=== PATIENT | female | born 1960 | race Two or more races ===

== ENCOUNTER 2018-12-11 21:44 | Emergency (ER) | payer MEDICARE, MEDICAID ==
[~2018-12-11] VITALS: Ht 152.4 cm; Wt 73.0 kg
[~2018-12-11 21:44] MED LIST: DES150; LORA-250; TRAM50TA3
[2018-12-12] MEDS ORDERED: LORAZEPAM 1MG TABLET PO ONE (01:30)
[2018-12-12] MEDS ORDERED: ACETAMINOPHEN 325MG TABLET PO STA (01:30)
[2018-12-12 01:47] LABS: BASOPHILS % 0.4 % (0.0-2.0); HEMATOCRIT. 36.6 % (36.0-48.0); HEMOGLOBIN. 12.2 g/dL (12.0-16.0); LYMPHOCYTES % 37.1 % (20.0-50.0); MEAN CORPUSCULAR HEMOGLOBIN 28.4 pg (28.0-32.0); MEAN CORPUSCULAR VOLUME 85.1 fL (81.0-99.0); MEAN PLATELET VOLUME 8.5 fl (7.4-10.4); NEUTROPHILS % 54.5 % (40.0-76.0); PLATELET 245 x1000/uL (130-400); RED CELL DISTRIBUTION WIDTH 14.6 % (11.6-14.6)
[2018-12-12 01:53] LABS: CHLORIDE 105 mEq/L (98-107)
[2018-12-12] MEDS ORDERED: SODIUM CHLORIDE 0.9% 1,000 ML IV ONE (03:11)
[2018-12-12 03:33] LABS: CLARITY URINE CLEAR (CLEAR); COLOR URINE YELLOW (YELLOW); KETONES URINE NEGATIVE (NEGATIVE); LEUKOCYTE ESTERASE URINE NEGATIVE (NEGATIVE); NITRITE URINE NEGATIVE (NEGATIVE); OCCULT BLOOD URINE TRACE (NEGATIVE); PROTEIN URINE NEGATIVE (NEGATIVE); SPECIFIC GRAVITY URINE 1.014 (1.005-1.030); UROBILINOGEN URINE 0.2 E.U./dL (0.2-1.0)
[2018-12-12 03:49] LABS: *BARBITURATES SCREEN URINE NEGATIVE (NEGATIVE); *BENZODIAZEPINES SCREEN URINE PRESUMTIVE POSITIVE (NEGATIVE)
[2018-12-12 03:50] LABS: *AMPHETAMINES SCREEN URINE NEGATIVE (NEGATIVE); *COCAINE SCREEN URINE NEGATIVE (NEGATIVE); METHADONE URINE SCREEN NEGATIVE (NEGATIVE); OPIATES URINE SCREEN PRESUMTIVE POSITIVE (NEGATIVE); PHENCYCLIDINE URINE SCREEN NEGATIVE (NEGATIVE)
[2018-12-12 03:51] LABS: CANNABINOID URINE SCREEN NEGATIVE (NEGATIVE)
[2018-12-12] MEDS ORDERED: ACETAMINOPHEN WITH CODEINE 300/30MG TABLET PO ONE (05:45)
[2018-12-12 11:15] VITALS: BP 162/78
[2018-12-12] MEDS ORDERED: ACETAMINOPHEN 325MG TABLET PO ONE (11:30)
== END 2018-12-12 13:11 | disposition home or self-care (01) ==
LOC: ER 21:44
DX: R51 Headache (principal); R07.89 Other chest pain; N39.0 Urinary tract infection, site not specified; R44.1 Visual hallucinations; F31.9 Bipolar disorder, unspecified; M54.30 Sciatica, unspecified side; F41.9 Anxiety disorder, unspecified; H53.8 Other visual disturbances; Z90.710 Acquired absence of both cervix and uterus; Z88.6 Allergy status to analgesic agent
CPT/HCPCS: 36415; 70450; 71045; 80053; 80305; 81003; 83880; 84484; 85025; 93005; 96360; 99284; J7030

== ENCOUNTER 2019-10-31 10:11 | Emergency (ER) | payer MEDICARE, MEDICAID ==
[~2019-10-31] VITALS: Ht 165.1 cm; Wt 80.0 kg
[2019-10-31] MEDS ORDERED: METHYLPREDNISOLONE SOD SUCC 125 MG/2 ML VIAL IV ONE (11:45)
[2019-10-31 12:12] LABS: BASOPHILS % 0.9 % (0.0-2.0); EOSINOPHILS % 2.8 % (0.0-5.0); HEMATOCRIT. 37.7 % (36.0-48.0); HEMOGLOBIN. 12.3 g/dL (12.0-16.0); LYMPHOCYTES % 39.8 % (20.0-50.0); MEAN CORPUSCULAR HEMOGLOBIN 26.7 pg (28.0-32.0); MEAN CORPUSCULAR VOLUME 81.7 fL (81.0-99.0); MEAN PLATELET VOLUME 8.4 fl (7.4-10.4); MONOCYTES % 5.9 % (2.0-8.0); NEUTROPHILS % 50.6 % (40.0-76.0); PLATELET 254 x1000/uL (130-400); RED BLOOD CELL COUNT 4.61 mill/uL (4.2-5.4)
[2019-10-31 12:15] LABS: CHLORIDE 102 mEq/L (98-107)
[2019-10-31 12:19] LABS: CLARITY URINE CLEAR (CLEAR); COLOR URINE YELLOW (YELLOW); KETONES URINE NEGATIVE (NEGATIVE); LEUKOCYTE ESTERASE URINE NEGATIVE (NEGATIVE); NITRITE URINE NEGATIVE (NEGATIVE); OCCULT BLOOD URINE NEGATIVE (NEGATIVE); PH URINE 5.5 (4.5-8.0); PROTEIN URINE NEGATIVE (NEGATIVE); SPECIFIC GRAVITY URINE 1.011 (1.005-1.030); UROBILINOGEN URINE 0.2 E.U./dL (0.2-1.0)
[2019-10-31 12:32] VITALS: BP 160/80
[2019-10-31 12:52] LABS: PROTHROMBIN TIME 10.4 sec (9.6-11.0)
== END 2019-10-31 14:22 | disposition home or self-care (01) ==
LOC: ER 10:11
DX: L29.9 Pruritus, unspecified (principal); F41.9 Anxiety disorder, unspecified; I10 Essential (primary) hypertension; Z88.6 Allergy status to analgesic agent; Z79.899 Other long term (current) drug therapy; Z90.710 Acquired absence of both cervix and uterus
CPT/HCPCS: 36415; 80053; 81003; 85025; 85610; 96374; 99283; J2930

== ENCOUNTER 2021-07-13 22:46 | Emergency (ER) | payer MEDICARE, MEDICAID ==
[~2021-07-13] VITALS: Ht 160 cm; Wt 80.0 kg
[2021-07-14] MEDS ORDERED: MORPHINE SULFATE 4 MG/ML CPJ (NOT FOR IM USE) IV ONE (00:15)
[2021-07-14] MEDS ORDERED: DIPHENHYDRAMINE 50MG/ML VIAL IV ONE (00:15)
[2021-07-14] MEDS ORDERED: METHYLPREDNISOLONE SOD SUCC 125 MG/2 ML VIAL IV ONE (00:15)
[2021-07-14 02:53] VITALS: BP 123/85
== END 2021-07-14 02:54 | disposition home or self-care (01) ==
LOC: ER 22:46
DX: T78.1XXA Other adverse food reactions, not elsewhere classified, initial encounter (principal); R21 Rash and other nonspecific skin eruption; L29.9 Pruritus, unspecified; X58.XXXA Exposure to other specified factors, initial encounter; I10 Essential (primary) hypertension; M54.30 Sciatica, unspecified side
CPT/HCPCS: 96374; 96375; 99284; J1200; J2270; J2930

== ENCOUNTER 2021-11-25 14:09 | Emergency (ER) | payer OTHER, MEDICAID ==
[~2021-11-25] VITALS: Ht 167.6 cm; Wt 90.0 kg
[2021-11-25 14:09] VITALS: BP 162/98
[2021-11-25] MEDS ORDERED: HYDROCODONE/ACETAMINOPHEN 5/325MG TABLET PO ONE (14:30)
[2021-11-25] MEDS ORDERED: TRAM50TA3 MT (15:49)
[2021-11-25] MEDS ORDERED: CYCL10TA21 MT (15:49)
== END 2021-11-25 19:33 | disposition home or self-care (01) ==
LOC: ER 14:09
DX: M54.50 Low back pain, unspecified (principal); M17.12 Unilateral primary osteoarthritis, left knee; Z88.6 Allergy status to analgesic agent; Z86.59 Personal history of other mental and behavioral disorders
CPT/HCPCS: 72100; 73560; 99284

== ENCOUNTER 2022-03-05 17:28 | Emergency (ER) | payer BC, MEDICAID ==
[~2022-03-05] VITALS: Ht 149.9 cm; Wt 95.3 kg
[~2022-03-05 17:28] MED LIST changes: +CYCL10TA21 MT; +TRAM50TA3 MT
[2022-03-05] MEDS ORDERED: P20 MT (18:40)
[2022-03-05] MEDS ORDERED: ACETAMINOPHEN 500MG TABLET PO ONE (18:45)
[2022-03-05] MEDS ORDERED: PREDNISONE 20MG TABLET PO ONE (18:45)
[2022-03-05] MEDS ORDERED: DIPHENHYDRAMINE 25MG CAPSULE PO ONE (18:45)
[2022-03-05 19:07] VITALS: BP 127/86
== END 2022-03-05 19:12 | disposition home or self-care (01) ==
LOC: ER 17:28
DX: F41.1 Generalized anxiety disorder (principal); F43.0 Acute stress reaction; L29.9 Pruritus, unspecified; G47.00 Insomnia, unspecified; Z63.79 Other stressful life events affecting family and household
CPT/HCPCS: 99284; J7512; Q0163

== ENCOUNTER 2022-07-01 22:23 | Emergency (ER) | payer BC, MEDICAID ==
[~2022-07-01] VITALS: Ht 152.4 cm; Wt 98.4 kg
[~2022-07-01 22:23] MED LIST changes: +P20 MT
[2022-07-01 23:19] VITALS: BP 139/82
== END 2022-07-02 08:56 | disposition left against medical advice (07) ==
LOC: ER 22:23
DX: Z53.21 Procedure and treatment not carried out due to patient leaving prior to being seen by health care provider (principal)

== ENCOUNTER 2022-09-08 12:36 | Emergency (ER) | payer OTHER, MEDICAID ==
[~2022-09-08] VITALS: Ht 165.1 cm; Wt 82.0 kg
[2022-09-08 13:48] LABS: BASOPHILS % 0.7 % (0.0-2.0); EOSINOPHILS % 2.1 % (0.0-5.0); HEMATOCRIT. 40.7 % (36.0-48.0); HEMOGLOBIN. 13.1 g/dL (12.0-16.0); LYMPHOCYTES % 31.6 % (20.0-50.0); MEAN CORPUSCULAR VOLUME 83.9 fL (81.0-99.0); MEAN PLATELET VOLUME 7.8 fl (7.4-10.4); MONOCYTES % 4.8 % (2.0-8.0); NEUTROPHILS % 60.8 % (40.0-76.0); PLATELET 298 x1000/uL (130-400); RED BLOOD CELL COUNT 4.85 mill/uL (4.2-5.4); RED CELL DISTRIBUTION WIDTH 15.3 % (11.6-14.6)
[2022-09-08 13:53] LABS: CHLORIDE 105 mEq/L (98-107)
[2022-09-08] MEDS ORDERED: ACETAMINOPHEN 325MG TABLET PO ONE (20:15)
[2022-09-09] MEDS ORDERED: DIPHENHYDRAMINE 50MG/ML VIAL IV ONE (01:30)
[2022-09-09 04:00] VITALS: BP 161/98
[2022-09-09] MEDS ORDERED: QUET100T PO (05:43)
[2022-09-09] MEDS ORDERED: ACETAMINOPHEN 325MG TABLET PO ONE (05:45)
== END 2022-09-09 06:06 | disposition home or self-care (01) ==
LOC: ER 12:36
DX: R55 Syncope and collapse (principal); R51.9 Headache, unspecified; I10 Essential (primary) hypertension; Z88.6 Allergy status to analgesic agent; Z91.018 Allergy to other foods; Z98.890 Other specified postprocedural states; Z86.59 Personal history of other mental and behavioral disorders
CPT/HCPCS: 36415; 70450; 71045; 80053; 83880; 84484; 85025; 93005; 96374; 99285; J1200

== ENCOUNTER 2023-03-09 09:28 | Emergency (ER) | payer MEDICARE, MEDICAID ==
[~2023-03-09] VITALS: Ht 162.6 cm; Wt 99.0 kg
[~2023-03-09 09:28] MED LIST changes: +ASEN5TAB8 SL; +DIPH50CA38 MT; +GABA-532 MT; +HYDR25TA MT; +LACT10SO7 PO; +METO-385 PO; +METO-411 MT; +MIRT-89 PO; +MIRT-90 MT; +OMEP20TA23 MT; -P20 MT; +PROM5SYR PO; +QUET100T PO; +QUET50TA PO; +T4 PO; -TRAM50TA3 MT; +TRAM50TA3 PO; +TRAZ-251 PO
[2023-03-09 09:39] VITALS: BP 139/109; PULSE 112; RESP 20; TEMP 98.7; O2SAT 100
[2023-03-09] MEDS ORDERED: ACETAMINOPHEN 325MG TABLET PO ONE (10:30)
[2023-03-09] MEDS ORDERED: ACET-2708 MT (11:14)
== END 2023-03-09 12:15 | disposition home or self-care (01) ==
LOC: ER 09:55
DX: S00.93XA Contusion of unspecified part of head, initial encounter (principal); I10 Essential (primary) hypertension; Z88.6 Allergy status to analgesic agent; Z91.018 Allergy to other foods; Z91.013 Allergy to seafood; Z79.899 Other long term (current) drug therapy; Z86.59 Personal history of other mental and behavioral disorders; Y04.0XXA Assault by unarmed brawl or fight, initial encounter; Y93.89 Activity, other specified; Y92.89 Other specified places as the place of occurrence of the external cause; Y99.8 Other external cause status
CPT/HCPCS: 71045; 99283